=== PATIENT | female | born 1985 | race American Indian/Alaskan Native ===

== ENCOUNTER 2016-10-08 17:14 | Emergency (ER) | payer MEDICAID ==
[2016-10-08 20:47] VITALS: BP 165/99
[2016-10-08] MEDS ORDERED: TORADOL IM ONE (21:04)
--- NOTE | 2016-10-08 21:12 | Emergency Department Report ---
ED ENT HPI - General Chief complaint: Dental/Oral Stated complaint: TOOTHACHE/HEADACHE/WEAKNESS Time Seen by Provider: 10/08/16 21:04 Source: patient Mode of arrival: Ambulatory Limitations: No Limitations - History of Present Illness Initial comments: Patient presents with left upper and lower tooth pain at number 16-19. She admits to having a history of cavities, broken teeth. She has an appointment with a dentist on October 28. She does admit to some chills and pain 04/29. She states she would prefer not to take ibuprofen because it "messes up my stomach." complaint: tooth pain -: Gradual Location: tooth # (16-19) Severity: severe Severity scale (0 -10): 8 Quality: aching, dull Consistency: constant Improves with: none Worsens with: eating Context- Dental: history of dental caries, poor dental care Associated Symptoms: toothache - Related Data Previous Rx's Medication Instructions Recorded Last Taken Type Amoxicillin [Amoxicillin TAB] 875 mg PO BID #20 tablet 10/08/16 Unknown Rx traMADol [Ultram 50 MG tab] 50 mg PO BID PRN #20 tablet 10/08/16 Unknown Rx Allergies Allergy/AdvReac Type Severity Reaction Status Date / Time No Known Allergies Allergy Verified 10/08/16 17:17 ED Dental HPI - General Chief complaint: Dental/Oral Stated complaint: TOOTHACHE/HEADACHE/WEAKNESS Time Seen by Provider: 10/08/16 21:04 Source: patient Mode of arrival: Ambulatory Limitations: No Limitations - Related Data Previous Rx's Medication Instructions Recorded Last Taken Type Amoxicillin [Amoxicillin TAB] 875 mg PO BID #20 tablet 10/08/16 Unknown Rx traMADol [Ultram 50 MG tab] 50 mg PO BID PRN #20 tablet 10/08/16 Unknown Rx Allergies Allergy/AdvReac Type Severity Reaction Status Date / Time No Known Allergies Allergy Verified 10/08/16 17:17 ED Review of Systems ROS: Stated complaint: TOOTHACHE/HEADACHE/WEAKNESS Other details as noted in HPI Constitutional: denies: chills, fever ENT: dental pain. denies: ear pain, throat pain Respiratory: denies: cough, shortness of breath, wheezing Cardiovascular: denies: chest pain, palpitations Gastrointestinal: denies: abdominal pain, nausea, diarrhea Musculoskeletal: denies: back pain, joint swelling, arthralgia Skin: denies: rash, lesions Neurological: denies: headache, weakness, paresthesias ED Past Medical Hx - Past Medical History Hx Headaches / Migraines: Yes Additional medical history: abd. hernia - Surgical History Additional Surgical History: hearing aide implant - Social History Smoking Status: Never Smoker Substance Use Type: None - Medications Home Medications: Home Medications Medication Instructions Recorded Confirmed Last Taken Type Amoxicillin [Amoxicillin TAB] 875 mg PO BID #20 tablet 10/08/16 Unknown Rx traMADol [Ultram 50 MG tab] 50 mg PO BID PRN #20 tablet 10/08/16 Unknown Rx ED Physical Exam - General Limitations: No Limitations General appearance: alert, in no apparent distress - Head Head exam: Present: atraumatic, normocephalic - Eye Eye exam: Present: normal appearance, PERRL - ENT ENT exam: Present: mucous membranes moist - Expanded ENT Exam Expanded Mouth exam: Present: normal external inspection Teeth exam: Present: fractured tooth # (16-19), dental tenderness # (16-19) - Neck Neck exam: Present: normal inspection, tenderness, full ROM. Absent: lymphadenopathy - Respiratory Respiratory exam: Present: normal lung sounds bilaterally. Absent: respiratory distress - Cardiovascular Cardiovascular Exam: Present: regular rate, normal rhythm. Absent: systolic murmur, diastolic murmur, rubs, gallop - Neurological Exam Neurological exam: Present: alert, oriented X3 - Psychiatric Psychiatric exam: Present: normal affect, normal mood - Skin Skin exam: Present: warm, dry, intact, normal color. Absent: rash ED Course Vital Signs 10/08/16 10/08/16 17:16 20:46 Temperature 99.2 F 98.3 F Pulse Rate 92 H 70 Respiratory 18 18 Rate Blood Pressure 144/94 Blood Pressure 165/99 [Right] O2 Sat by Pulse 100 99 Oximetry ED Medical Decision Making - Medical Decision Making She presents with 4 broken teeth #16-19, swollen gums. I will give amoxicillin 875 twice a day 10 days and tramadol for pain due to patient states ibuprofen upsets her stomach. She has an appointment with a dentist on October 28. - Differential Diagnosis tooth decay, abscess tooth, fractured teeth Critical Care Time: No Critical care attestation.: If time is entered above; I have spent that time in minutes in the direct care of this critically ill patient, excluding procedure time. ED Disposition Clinical Impression: Tooth decay, Fractured tooth, Tooth abscess Disposition: DISCHARGED TO HOME OR SELFCARE Is pt being admited?: No Does the pt Need Aspirin: No Condition: Stable Instructions: Dental Caries (ED), Dental Abscess (ED) Additional Instructions: Follow-up with your dental appointment on October 28 as discussed Prescriptions: Amoxicillin [Amoxicillin TAB] 875 mg PO BID #20 tablet traMADol [Ultram 50 MG tab] 50 mg PO BID PRN #20 tablet PRN Reason: Pain Time of Disposition: 21:23
== END 2016-10-08 21:41 | disposition home or self-care (01) ==
LOC: ED 17:14
DX: K03.81 Cracked tooth (principal); K02.9 Dental caries, unspecified; K04.7 Periapical abscess without sinus; G43.909 Migraine, unspecified, not intractable, without status migrainosus
CPT/HCPCS: 96372; 99282; J1885